=== PATIENT | female | born 1975 | race Caucasian/White ===

== ENCOUNTER 2019-12-02 22:54 | Emergency (ER) | payer MEDICAID ==
[2019-12-03] MEDS ORDERED: NORMAL SALINE 1000 ML 1,000 ML IV ONE (02:38)
[2019-12-03] MEDS ORDERED: METOCLOPRAMIDE HCL INJ/PF 10 MG/2 ML SDV IV ONE (02:38)
[2019-12-03] MEDS ORDERED: KETOROLAC TROMETHAMINE INJ/PF 30 MG/1 ML SDV IV ONE (02:38)
[2019-12-03 03:20] LABS: ABSOLUTE BASOPHILS # (AUTO) 0.1 10^3/uL (0.0-0.2); ABSOLUTE EOSINOPHILS # (AUTO) 0.5 10^3/uL (0.0-0.6); ABSOLUTE LYMPHOCYTES (AUTO) 3.7 10^3/uL (0.5-4.7); ABSOLUTE MONOCYTES (AUTO) 0.8 10^3/uL (0.1-1.4); ABSOLUTE NEUT (AUTO) 4.6 10^3/uL (1.7-8.2); BASOPHILS % (AUTO) 0.7 % (0-2); EOSINOPHILS % (AUTO) 5.2 % (0-6); HEMATOCRIT 39.5 % (36.0-47.0); HEMOGLOBIN 13.8 g/dL (12.0-15.5); LYMPHOCYTES % (AUTO) 37.9 % (13-45); MEAN CORPUSCULAR HEMOGLOBIN 31.9 pg (27.0-33.4); MEAN CORPUSCULAR HGB CONC 34.9 g/dL (32.0-36.0); MEAN CORPUSCULAR VOLUME 91 fl (80-97); MONOCYTES % (AUTO) 8.6 % (3-13); PLATELET COUNT 254 10^3/uL (150-450); RED BLOOD COUNT 4.33 10^6/uL (3.72-5.28); RED CELL DISTRIBUTION WIDTH 13.8 % (11.5-14.0); SEGMENTED NEUTROPHILS % (AUTO) 47.6 % (42-78); TOTAL CELLS COUNTED % (AUTO) 100 %; WHITE BLOOD COUNT 9.7 10^3/uL (4.0-10.5)
[2019-12-03 03:39] LABS: ALBUMIN 4.5 g/dL (3.5-5.0); ALKALINE PHOSPHATASE 76 U/L (38-126); ANION GAP 11 (5-19); ASPARTATE AMINO TRANSFERASE 31 U/L (14-36); BILIRUBIN,DIRECT 0.2 mg/dL (0.0-0.4); BILIRUBIN,TOTAL 0.4 mg/dL (0.2-1.3); BLOOD UREA NITROGEN 10 mg/dL (7-20); CALCIUM 9.4 mg/dL (8.4-10.2); CARBON DIOXIDE 23 mmol/L (22-30); CHLORIDE 105 mmol/L (98-107); CREATINE KINASE 55 U/L (30-135); GLUCOSE 100 mg/dL (75-110); TOTAL PROTEIN 7.5 g/dL (6.3-8.2)
--- NOTE | 2019-12-03 03:48 | ER Document Report ---
ED General - General Chief Complaint: Sore Throat Stated Complaint: SWOLLEN TONSILS CHEST PAIN Notes: 44-year-old female history of DVT approximately 1 year ago presents with sensation of drainage from throat for several days and chest pain for approximately the duration of 2019. Patient says pain feels like a mid chest tightness that worsens when she gets worried about things and has been present on most days of this year. Patient has felt like she has pus draining from the back of her throat that is coming from both sides of her throat but denies any throat pain. Patient feels like she has had food objects get stuck in her throat for approximately the past 36 years associated with halitosis and she has avoided eating large food or drinks or pills because of this. Patient says the DVT was treated she is unsure if it was provoked at that time patient not currently on anticoagulation. Patient previously sexually active approximately 3 months ago without protection but has had no throat symptoms until few days ago. Patient endorses approximately few days of generalized malaise, myalgia, gradual onset gradually worsening bilateral frontal headache. patient denies any exertional chest pain, hypertension, hyperlipidemia, diabetes, cardiac history, family history, lower extremity edema or pain, exogenous estrogen therapy, /recent , DVT/PE/hypercoagulability history in family, cancer history, recent travel/trauma/surgery/immobilization, unexplained weight loss, heat cold intolerance, shortness of breath, fever, throat pain, cou gh/hemoptysis, SI or HI, drug use, neck pain or stiffness, sudden onset headache, worse headache of life, weakness or numbness, change in vision/speech/gait, vomiting, seizure, altered mental status. Patient also complains of urinary frequency of unknown duration without urgency, dysuria, hematuria, or flank pain. Past Medical History - General Information source: Patient - Social History Smoking Status: Never Smoker Family History: Reviewed & Not Pertinent Past Surgical History: Reports: Hx Cholecystectomy Review of Systems - Review of Systems Notes: REVIEW OF SYSTEMS: CONSTITUTIONAL : Denies fever, chills, or sweats. EENT: +sinus symptoms, denies throat pain CARDIOVASCULAR: + chest pain, -LES RESPIRATORY: Denies cough, denies shortness of breath. GASTROINTESTINAL: Denies abdominal pain, nausea/vomiting. GENITOURINARY: Denies difficulty urinating, painful urination. FEMALE GENITOURINARY: Denies abnormal vaginal bleeding, vaginal discharge. MUSCULOSKELETAL: Denies neck pain, back pain. SKIN: Denies rash or skin lesions. HEMATOLOGIC : Denies easy bruising or bleeding. LYMPHATIC: Denies swollen, enlarged glands. NEUROLOGICAL: + headache, denies change in gait. PSYCHIATRIC: + anxiety -acute stress Physical Exam - Vital signs Vitals: Temp Pulse Resp BP Pulse Ox 98.6 F 78 18 140/100 H 100 12/02/19 23:43 12/02/19 23:43 12/02/19 23:43 12/02/19 23:43 12/02/19 23:43 - Notes Notes: PHYSICAL EXAMINATION: GENERAL: Well-appearing, well-nourished, comfortable appearing middle-aged woman sitting up in stretcher in no acute distress. HEAD: Atraumatic, normocephalic. EYES: Pupils equal round and appropriate constriction, sclera anicteric, conjunctiva are normal. ENT: nares patent, moist mucous membranes, purulent drainage in posterior oropharynx bilaterally posterior to tonsils, no retropharyngeal fullness, normal midline uvula, normal soft palate, marbling of bilateral tonsils NECK: Normal range of motion, supple without lymphadenopathy LUNGS: Breath sounds clear to auscultation bilaterally and equal. No wheezes rales or rhonchi. Normal respiratory rate and effort HEART: Regular rate and rhythm without murmurs ABDOMEN: Soft, nontender, no guarding, no masses, no CVAT EXTREMITIES: Normal range of motion, no pitting or edema. No cyanosis. NEUROLOGICAL: Awake, alert, conversing appropriately, moves all extremities spontaneously, cranial nerves II through XII intact bilaterally, normal [id number] bilaterally, strength 5/5 in all extremities, normal sensation in all extremities PSYCH: Normal mood, normal affect. SKIN: Warm, Dry, normal turgor, no rashes or lesions noted. Course - Re-evaluation Re-evalutation: 12/03/19 04:35 Headache with benign presentation, no red flags on history, no neuro deficits on history or exam, very well-appearing patient with comfortable appearance, only abnormality on exam was posterior purulent discharge, no signs of abscess, source of discharge likely frontal sinuses and is actively draining, will send covid test given generalized malaise and myalgia, will also send rapid strep and throat culture. Low suspicion for GC as cause given 3 months since last sexual contact. I discussion with patient regarding very likely acute sinusitis causing symptoms as well as possible Zenker's diverticulum causing her decades long symptoms of dysphagia and halitosis which patient will need to have worked up outpatient by ENT. Will give patient prescription for Augmentin to be filled if symptoms do not improve with few days of nasal rinses. COVID swab sent. Chest pain is been present for many months is atypical for ACS and ruled out with EKG and troponin. Patient Wells criteria for PE 1.5 so appropriate to be ruled out with d-dimer which was negative. Patient ready for discharge with PCP and ENT follow-up. Given extensive return to ED precautions which she d emonstrated understanding of. The patient was evaluated during the global COVID-19 pandemic and that diagnosis was suspected/considered upon their initial presentation. Their evaluation, treatment and testing was consistent with current guidelines for patients who present with complaints or symptoms that may be related to COVID-19. - Vital Signs Vital signs: Temp Pulse Resp BP Pulse Ox 98.1 F 69 14 100/55 L 100 12/03/19 04:50 12/03/19 04:50 12/03/19 04:50 12/03/19 04:50 12/03/19 04:50 - Laboratory Result Diagrams: 12/03/19 03:03 12/03/19 03:03 Laboratory results interpreted by me: 12/03/19 12/03/19 03:03 03:57 ALT 43 H Urine Ketones 20 H Urine Blood SMALL H Leukocyte Esterase Rfl TRACE H - Diagnostic Test Radiology results interpreted by me: 12/03/19 07:44 Sinus rhythm, no significant ST elevations or depressions, no significant T wave abnormalities, normal QTC Discharge - Discharge Clinical Impression: Sinusitis Qualifiers: Sinusitis location: frontal Chronicity: acute Recurrence: not specified as recurrent Qualified Code(s): J01.10 - Acute frontal sinusitis, unspecified Chest pain Qualifiers: Chest pain type: unspecified Qualified Code(s): R07.9 - Chest pain, unspecified Disposition: HOME, SELF-CARE Additional Instructions: Sinusitis You have sinusitis, an infection of the sinus cavities of the face. The sinuses are air-filled chambers which open into the inside of the nose. Bacteria and pus fill a sinus, causing pain, drainage, and fever. Sinusitis is treated with antibiotics. Often, expectorants (to thin the sinus mucous) or decongestants (to reduce swelling) are prescribed as well. Healing requires seven to 10 days. Avoid chemical fumes, pollens, dusts, and smoke (especially cigarette smoke). Keep the air humidified in your bedroom and work area and take plenty of liquids by mouth. This condition can be serious if the infection spreads. If your symptoms worsen, or if you develop severe headache, high fever, stiff neck, or a rash, you must call the doctor or return for re-evaluation. Use nasal sinus rinses for your symptoms, ask the pharmacist to direct you. If you have any change in vision, double vision, worsening headache, vomiting, tearing, fever of 100.4 or higher, confusion, seizure, difficulty breathing, dizziness or fainting, inability to keep down liquids by mouth, or any other worsening o or alarming symptoms return to the emergency department immediately. Follow-up with primary doctor and ENT doctor within 1 week. He has a small amount of blood in your urine, discussed this with your primary doctor. Discuss with ENT doctor the possibility of a Zenker's diverticulum causing your chronic halitosis and food stuck sensation. Prescriptions: Amoxicillin 875 mg PO BID 7 Days #160 ml
--- NOTE | 2019-12-03 04:11 | RADIOLOGY REPORT (SQ) ---
EXAM DESCRIPTION: XR CHEST 1 VIEW COMPLETED DATE/TME: 12/03/2019 02:33 CLINICAL HISTORY: chest pain COMPARISON: None. FINDINGS: Single frontal radiograph view of the chest. Cardiomediastinal silhouette: Normal size and contour. Lungs: No consolidation, pneumothorax, or pleural effusion. Bones: No acute osseous abnormality. Upper abdomen: No abnormality identified. IMPRESSION: 1. No acute pulmonary process identified.
[2019-12-03 04:35] LABS: APPEARANCE,URINE SLIGHTLY-CLOUDY; BILIRUBIN,URINE NEGATIVE (NEGATIVE); COLOR,URINE YELLOW; GLUCOSE, URINE NEGATIVE (NEGATIVE); KETONES,URINE 20 mg/dL (NEGATIVE); PROTEIN,URINE NEGATIVE (NEGATIVE); UROBILINOGEN,URINE NEGATIVE mg/dL (<2.0)
[2019-12-03 04:51] VITALS: BP 100/55
--- NOTE | 2019-12-04 00:50 | EKG REPORT ---
SEVERITY:- ABNORMAL ECG - Sinus rhythm : Confirmed by: Pedro Watt 04-Dec-2019 00:49:29
== END 2019-12-03 05:18 | disposition home or self-care (01) ==
LOC: ER 22:54
DX: J01.10 Acute frontal sinusitis, unspecified (principal); R07.89 Other chest pain; R13.10 Dysphagia, unspecified; R19.6 Halitosis; R53.81 Other malaise; M79.10 Myalgia, unspecified site; R51 Headache; Z86.718 Personal history of other venous thrombosis and embolism; Z20.828 Contact with and (suspected) exposure to other viral communicable diseases
CPT/HCPCS: 93005; 99284; 96360; 36415; 87070; 87880; 82550; 85025; 87635; 81025; 80053; 81001; 84484; 85379; 71045; 93010; J7030; C9803